=== PATIENT | female | born 1980 | race Caucasian/White ===

== ENCOUNTER 2023-03-04 17:56 | Emergency (ER) | payer SELFPAY ==
[2023-03-04] MEDS: Albuterol 6.7 GM Inhaler INH STA (18:20)
== END 2023-03-04 19:32 | disposition home or self-care (01) ==
LOC: CC.ED 17:56
DX: J10.1 Influenza due to other identified influenza virus with other respiratory manifestations (principal); F17.210 Nicotine dependence, cigarettes, uncomplicated; Z20.822 Contact with and (suspected) exposure to COVID-19; Z88.6 Allergy status to analgesic agent; Z88.0 Allergy status to penicillin
CPT/HCPCS: 87804; 99283; 99285; A9270-GY; U0002